=== PATIENT | female | born 1960 | race Caucasian/White ===

== ENCOUNTER 2018-07-30 14:41 | Emergency (ER) | payer BC, OTHER ==
[~2018-07-30] VITALS: Ht 160 cm; Wt 98.0 kg
[~2018-07-30 14:41] MED LIST: ACET-1025 PO; CHOL50006 PO; NORCO10T PO; ONDA4TAB12 PO
[2018-07-30] MEDS ORDERED: ketorolac trometh inj. 60 MG/2 ML VIAL IM ONE (15:20)
[2018-07-30 15:36] VITALS: BP 140/82
== END 2018-07-30 16:18 | disposition home or self-care (01) ==
LOC: ER 14:41
DX: S93.401A Sprain of unspecified ligament of right ankle, initial encounter (principal); G89.29 Other chronic pain; Z90.49 Acquired absence of other specified parts of digestive tract; Z90.710 Acquired absence of both cervix and uterus; Z98.890 Other specified postprocedural states; Z79.899 Other long term (current) drug therapy; X58.XXXA Exposure to other specified factors, initial encounter; Y93.01 Activity, walking, marching and hiking; Y92.89 Other specified places as the place of occurrence of the external cause; Y99.8 Other external cause status
CPT/HCPCS: 73610; 73630; 96372; 99283; J1885